=== PATIENT | female | born 1965 | race African-American/Black ===

== ENCOUNTER 2021-12-13 21:18 | Emergency (ER) | payer BC, SELFPAY ==
--- NOTE | ~2021-12-13 | XR_ITS ---
EXAMINATION: XR HIP RT MIN 2V XR KNEE RT 3V CLINICAL INFORMATION: Fall. Pain. COMPARISON: None. TECHNIQUE: AP view the pelvis and AP and frog-leg lateral views of the right hip. AP, lateral and bilateral oblique views of the right knee. FINDINGS: Pelvis/right hip: c no acute fracture or dislocation. Pelvic ring intact. Sacroiliac joints and symphysis pubis unremarkable. Sacral arcuate lines are continuous. Femoral heads are spherical. Mild bilateral hip joint space narrowing and small acetabular marginal osteophytes. Right knee: No acute fracture or dislocation. Joint spaces and articular surfaces are maintained. No significant joint effusion. Soft tissues unremarkable. XR/XR knee RT 3V IMPRESSION: No acute findings
--- NOTE | ~2021-12-13 | XR_ITS ---
EXAMINATION: XR HIP RT MIN 2V XR KNEE RT 3V CLINICAL INFORMATION: Fall. Pain. COMPARISON: None. TECHNIQUE: AP view the pelvis and AP and frog-leg lateral views of the right hip. AP, lateral and bilateral oblique views of the right knee. FINDINGS: Pelvis/right hip: c no acute fracture or dislocation. Pelvic ring intact. Sacroiliac joints and symphysis pubis unremarkable. Sacral arcuate lines are continuous. Femoral heads are spherical. Mild bilateral hip joint space narrowing and small acetabular marginal osteophytes. Right knee: No acute fracture or dislocation. Joint spaces and articular surfaces are maintained. No significant joint effusion. Soft tissues unremarkable. XR/XR hip RT min 2V IMPRESSION: No acute findings
[2021-12-13] MEDS: Acetaminophen 325 MG TABLET 650 MG PO (22:28)
[2021-12-13] MEDS: Ibuprofen 600 MG TABLET PO (22:28)
[2021-12-13 22:32] VITALS: BP 155/79; PULSE 79; RESP 18; TEMP 36.9; O2SAT 98; BMI 31.3
--- NOTE | 2021-12-13 23:40 | ED.FALL ---
HPI - Fall General Chief Complaint: Fall Stated Complaint: fall, right leg pain Time Seen by Provider: 12/13/21 23:40 Source: patient Mode of arrival: wheelchair Limitations: no limitations History of Present Illness HPI Narrative: This is a 56-year-old female no significant medical history presenting to the emergency department with complaints of right-sided knee pain and hip pain status [place]. Patient tells me she was walking and she slipped on wet floor, she landed directly onto her right knee and onto her right hip. She tells me she fell to the ground and was able to get up without help. She denies head strike or loss of consciousness. She is not on blood thinners. Patient ambulating with a steady gait, tells me the pain is worse with movement better at rest. Denies numbness or tingling, headache, dizziness, chest pain, shortness of breath, nausea, vomiting, abdominal pain. MD complaint: fall Onset (ago): day(s) Fall from: standing Fall witnessed: no Place fall occurred: other ([place]all ) Loss of consciousness: none Prolonged down time: no Symptoms prior to fall: none Context: tripped/slipped Related Data Previous Rx's Medication Instructions Recorded cyclobenzaprine 10 mg tablet 10 mg PO BEDTIME PRN #7 tab 12/14/21 Allergies Allergy/AdvReac Type Severity Reaction Status Date / Time acetaminophen [From Percocet] Allergy Unknown Verified 12/13/21 22:37 morphine Allergy Unknown Verified 12/13/21 22:37 oxycodone [From Percocet] Allergy Unknown Verified 12/13/21 22:37 Review of Systems Review of Systems: Constitutional : No Weight loss, No Fever, No Chills, No Fatigue, No Malaise ENT/Mouth : No sore throat, No Rhinorrhea Eyes: No Eye Pain, No Swelling, No Redness Cardiovascular : No Chest Pain, No SOB, No Dyspnea on Exertion, No Orthopnea, No Edema, No Palpitations Respiratory : No Cough, No Sputum, No Wheezing Gastrointestinal : No Nausea, No Vomiting, No Diarrhea, No Constipation, No abdominal Pain, No Hematochezia, No Melena Genitourinary : No Dysuria, No Urinary Frequency, No Hematuria, Musculoskeletal : + joint pain, No Myalgias, No Joint Swelling Skin : No Skin Lesions, No rash Neuro : No Weakness, No Numbness, No Dizziness, No Headache Psych : No Anxiety/Panic, No Depression All other systems reviewed and are negative Yes all other systems are reviewed and are negative [facility] Past Medical History Attestation statement: The following information was validated with the patient. Source: old records reviewed and nursing notes reviewed Social History Social History Advance Directives: No Physical Exam Vital Signs: Vital Signs: Last Vital Signs Temp 98.4 F 12/13/21 22:32 Pulse 79 12/13/21 22:32 Resp 18 12/13/21 22:32 BP 155/79 H 12/13/21 22:32 Pulse Ox 98 12/13/21 22:32 BMI result Body Mass Index 31.3 Vital signs stable Appearance: Alert.? Oriented X3.? No acute distress.? Head: Normocephalic, atraumatic, no step-offs or deformities Eyes: Pupils equal, round and reactive to light.? ENT: Pharynx normal.? Neck: Normal inspection.? Neck supple.? CVS: Normal heart rate and rhythm.? Pulses normal.? Respiratory: No respiratory distress.? Breath sounds normal.? Abdomen: Soft and nontender.? Skin: Skin warm and dry.? Normal skin color.? Normal skin turgor.?+ small abrasion to right knee Extremities: No lower extremity edema.? No calf ttp. 5/5 strength to bilateral upper and lower extremities. Full range of motion to bilateral hips, knees. Patient ambulating with steady gait. Bilateral patellar, DP,PT pulses 2+ equal bilateral. Neuro: Oriented X 3.? No motor deficit.? No sensory deficit. CN 2-12 intact Course Reevaluation(s) Reevaluation #1: X-ray of the hip no acute findings. X-ray of the knee with no acute findings. No evident fractures or dislocations. Likely muscle pain. I will give patient Toradol and cyclobenzaprine. At this time patient will be discharged home advised her to return with new or worsening symptoms. Patient ambulating with a steady gait, appears comfortable. Asking to go home. Will give her ortho follow-up. Time: 00:27 MDM - Fall [facility] Narrative Medical decision making narrative: [id number] 56 yo f presets w/ Right hip, knee pain status post trip and fall earlier today. Physical examination benign. Patient ambulating with steady gait. No overlying skin changes. No evident ligament or tendon involvement. Plan xray r/o fracture dislocation. Unlikely that this is ligament or tendon injury. Patient ambulating with a steady gait. Appears well, comfortable. Medical Records Attestation: I reviewed the patient's medical records. Lab Data Attestation: I reviewed the patient's lab results. Critical Care Time Critical Care Time Critical Care Time: No Discharge Plan Discharge Clinical Impression: Hip pain, Knee pain, right Patient Disposition: Home, Self-Care Instructions: Knee Pain (ED), R.I.C.E. Treatment (ED), Hip Pain (ED) Additional Instructions: Take your medications as prescribed. If you were prescribed antibiotics today, it is important that you take your medication to their entirety, do not skip any doses, do not finish them early. Follow-up with your primary care provider this week. Follow-up with orthopedics. The x-ray of your hip and knee did not show any acute fractures or dislocations. I am unable to rule out any ligament or tendon injuries therefore I recommend you get an MRI of the symptoms persist. Return to the emergency department with new or worsening symptoms. Such as fevers, chills, chest pain, shortness of breath, nausea, vomiting, dizziness, headache, vision changes, lethargy, numbness, tingling, inability to bend the knee or hip, overlying skin changes, severe pain In case of emergency call 911 FINDINGS: Pelvis/right hip: c no acute fracture or dislocation. Pelvic ring intact. Sacroiliac joints and symphysis pubis unremarkable. Sacral arcuate lines are continuous. Femoral heads are spherical. Mild bilateral hip joint space narrowing and small acetabular marginal osteophytes. Right knee: No acute fracture or dislocation. Joint spaces and articular surfaces are maintained. No significant joint effusion. Soft tissues unremarkable. XR/XR hip RT min 2V IMPRESSION: No acute findings? Prescriptions: New cyclobenzaprine 10 mg tablet 10 mg PO BEDTIME PRN (Reason: muscle spasm) Qty: 7 0RF Referrals: [facility] [place] [facility] [Provider Group] - 1 week Physician,Nonstaff [Primary Care Provider] - 2 days
[2021-12-14] MEDS: Cyclobenzaprine HCl 10 MG TABLET PO (00:49)
[2021-12-14] MEDS: Ketorolac Tromethamine 15 MG/ML VIAL 30 MG IM (00:49)
== END 2021-12-14 01:04 | disposition home or self-care (01) ==
PROVIDERS: Emergency Provider Internal Medicine
DX: M25.561 Pain in right knee (principal); M25.551 Pain in right hip; Z91.81 History of falling
CPT/HCPCS: 73502; 73562; 96372; 99283; 99284; J1885